=== PATIENT | male | born 1945 | race Caucasian/White ===

== ENCOUNTER 2022-01-25 14:07 | Emergency (ER) | payer OTHER ==
[~2022-01-25] VITALS: Ht 180.3 cm; Wt 85.3 kg
--- NOTE | 2022-01-25 14:17 | NUR ---
TO ER BED 7, BIBA RA99 From Home "Recent dc from hospital saturday now SOB/Kidney disease, AAOX3, breathing even and non labored, connected to monitor, awaiting md whelan
[2022-01-25 16:10] LABS: BASOPHILS % (AUTO) 0.4 % (0.0-2.0); EOSINOPHILS % (AUTO) 2.2 % (0.0-6.0); HEMATOCRIT 28 % (39-51); HEMOGLOBIN 9.4 g/dL (13.5-17.5); LYMPHOCYTES # (AUTO) 0.6 K/uL (0.8-4.8); LYMPHOCYTES % (AUTO) 6.6 % (20.0-44.0); MEAN CORPUSCULAR HGB CONC 33 g/dl (31.0-36.0); MEAN CORPUSCULAR VOLUME 95 fL (80-96); MONOCYTES # (AUTO) 0.6 K/uL (0.1-1.30); MONOCYTES % (AUTO) 7.3 % (2.0-12.0); NEUTROPHILS # (AUTO) 7.4 K/uL (1.8-8.9); NEUTROPHILS % (AUTO) 83.5 % (43.0-81.0); PLATELET COUNT (AUTO) 248 K/uL (150-450); RED BLOOD CELL COUNT(AUTO) 2.97 MIL/uL (4.5-6.0); WHITE BLOOD COUNT (AUTO) 8.9 K/uL (4.3-11.0)
[2022-01-25 16:44] LABS: CALCIUM, SERUM 8.1 mg/dL (8.5-10.1); CARBON DIOXIDE 21 mmol/L (21-32); CHLORIDE 108 mmol/L (98-107); CREATININE 3.2 mg/dL (0.6-1.3); GLUCOSE 118 mg/dL (74-106); POTASSIUM 5.9 mmol/L (3.5-5.1); SODIUM SERUM 138 mmol/L (136-145)
[2022-01-25] MEDS ORDERED: FURO40TA5 PO (16:46)
[2022-01-25] MEDS ORDERED: AMLO-212 PO (16:46)
[2022-01-25] MEDS ORDERED: ATOR40TA PO (16:51)
[2022-01-25] MEDS ORDERED: INSU100V7 SQ (16:51)
[2022-01-25] MEDS ORDERED: HYDR-4076 PO (16:51)
[2022-01-25] MEDS ORDERED: ASPI-1169 PO (16:51)
[2022-01-25] MEDS ORDERED: VIT1TABL44 PO (16:51)
[2022-01-25 16:56] LABS: ALANINE AMINOTRANSFERASE 26 U/L (12-78); ALBUMIN 2.2 g/dL (3.4-5.0); ALKALINE PHOSPHATASE 210 U/L (46-116); ASPARTATE AMINOTRANSFERASE 42 U/L (15-37); BILIRUBIN,DIRECT 0.1 mg/dL (0.0-0.2); BILIRUBIN,TOTAL 0.3 mg/dL (0.2-1.0)
[2022-01-25 16:57] LABS: UREA NITROGEN, BLOOD 88 mg/dL (7-18)
[2022-01-25] MEDS ORDERED: SODIUM POLYSTYRENE SULFONATE 15 G/60 ML BOTTLE PO ONE (17:00)
[2022-01-25] MEDS ORDERED: FUROSEMIDE 40 MG/4 ML VIAL IV ONE (17:00)
[2022-01-25] MEDS ORDERED: SODIUM BICARBONATE SYR 50 MEQ/50 ML DISP.SYRIN IV ONE (17:00)
--- NOTE | 2022-01-25 17:00 | NUR ---
Midline Nurse here to insert IV access
[2022-01-25] MEDS ORDERED: SODIUM POLYSTYRENE SULFONATE 15 G/60 ML BOTTLE ONE (17:20)
[2022-01-25] MEDS ORDERED: FUROSEMIDE 20 MG/2 ML VIAL ONE (17:20)
--- NOTE | 2022-01-25 17:26 | NUR ---
RADHA BETANCOURT SPEAKING WITH DR. FISH.
[2022-01-25 19:02] VITALS: BP 153/98
--- NOTE | 2022-01-25 19:03 | NUR ---
ATTEMPTED TO GIVE REPORT, NO NURSE ASSIGN YET, PT WILL GO TO ER
--- NOTE | 2022-01-25 19:03 | NUR ---
ACCEPTED AT [facility] DR. PARKER ACCEPTING . [phone] REPORT AFTER CHANGE OF SHIFT.
--- NOTE | 2022-01-25 19:07 | NUR ---
REPORT GIVEN TO PHIL JACKSON FOR ANAY
--- NOTE | 2022-01-25 19:23 | NUR ---
PICKED UP BY TRANSSPORT IN STABLE CONDITION
== END 2022-01-25 19:24 | disposition short-term general hospital (02) ==
LOC: ER 14:09
DX: I13.0 Hypertensive heart and chronic kidney disease with heart failure and stage 1 through stage 4 chronic kidney disease, or unspecified chronic kidney disease (principal); I50.9 Heart failure, unspecified; E11.22 Type 2 diabetes mellitus with diabetic chronic kidney disease; N18.9 Chronic kidney disease, unspecified; Z79.4 Long term (current) use of insulin; Z79.899 Other long term (current) drug therapy; I45.10 Unspecified right bundle-branch block; Z20.822 Contact with and (suspected) exposure to COVID-19; E87.5 Hyperkalemia
CPT/HCPCS: 99291; 96374; 71045; 96375; 87426; 36410; 93005; 85025; 80048; 80076; 36415; 83880; J1940; C9803

== ENCOUNTER 2022-02-08 03:55 | Emergency (ER) | payer OTHER ==
[~2022-02-08] VITALS: Ht 175.3 cm; Wt 85.3 kg
[~2022-02-08 03:55] MED LIST: AMLO-212 PO; ASPI-1169 PO; ATOR40TA PO; FURO40TA5 PO; HYDR-4076 PO; INSU100V7 SQ; VIT1TABL44 PO
--- NOTE | 2022-02-08 04:03 | NUR ---
[id number] FROM HOME C/O CONSTIPATION & URINARY RETENTION X5 HOURS. PT A/OX4. TOLERATING R/A WELL WITH NO RESP DISTRESS. SAFETY MEASURES IN PLACE.
[2022-02-08] MEDS ORDERED: LIDOCAINE 2% JEL UROJET 10 ML MM ONE ×2 (04:05→04:30)
--- NOTE | 2022-02-08 04:16 | NUR ---
16FR INDWELLING FC INSERTED WITH 1100ML OUTPUT. MADE AWARE.
--- NOTE | 2022-02-08 04:16 | NUR ---
URINE SENT TO LAB
--- NOTE | 2022-02-08 04:16 | NUR ---
CALLED LAB FOR CALL CENTER SUPPORT CONSULTANT
[2022-02-08] MEDS ORDERED: NA PHOS,M-B/NA PHOS,DI-BA 1 EA ENEMA RC ONE (04:17)
--- NOTE | 2022-02-08 04:26 | NUR ---
FLEET ENEMA ADMIN PER MD ORDER. PT TOLERATED WELL. PLACED IN L LATERAL.
[2022-02-08] MEDS ORDERED: MINERAL OIL 133 ML (PYXIS) 1 EA ENEMA RC ONE (04:30)
[2022-02-08 06:00] LABS: BILIRUBIN,URINE NEGATIVE (NEGATIVE); LEUKOCYTE ESTERASE ,URINE LARGE (NEGATIVE); NITRITE, URINE NEGATIVE (NEGATIVE); PROTEIN,URINE 3+ mg/dl (NEGATIVE); UGLUCOSE NEGATIVE (NEGATIVE); UROBILINOGEN,URINE 0.2 EU/dL (0.2)
[2022-02-08 06:17] LABS: BACTERIA,URINE Few /HPF (None Seen); RBC,URINE 0-2 /HPF (0-2); SQUAMOUS EPITHELIAL CELL,UR Rare /HPF (None Seen); WBC,URINE TOO NUMEROUS TO COUN /HPF (0-3)
[2022-02-08] MEDS ORDERED: CIPR500T5 PO (06:27)
--- NOTE | 2022-02-08 07:14 | NUR ---
CALLED [facility] TO INITIATE A TRANSPORT FOR PT TO GO BACK TO HIS RESIDENCE. WILL CALL BACK FOR MD TO
--- NOTE | 2022-02-08 07:16 | NUR ---
DR. TOM FROM [facility] ON THE PHONE WITH DR. GARCIA
--- NOTE | 2022-02-08 07:23 | NUR ---
arriaga catheter bag changed to leg bag. patient teaching provided and pt verbalizes understanding.
--- NOTE | 2022-02-08 07:29 | NUR ---
RADHAMES ([facility]) - [phone] CHELY () - [phone]
--- NOTE | 2022-02-08 07:50 | NUR ---
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
--- NOTE | 2022-02-08 08:33 | NUR ---
COVID SWAB DONE AND SENT TO LAB
[2022-02-08 08:40] LABS: BASOPHILS % (AUTO) 0.4 % (0.0-2.0); EOSINOPHILS % (AUTO) 0.8 % (0.0-6.0); HEMATOCRIT 25 % (39-51); HEMOGLOBIN 8.2 g/dL (13.5-17.5); LYMPHOCYTES # (AUTO) 0.5 K/uL (0.8-4.8); LYMPHOCYTES % (AUTO) 5.4 % (20.0-44.0); MEAN CORPUSCULAR HGB CONC 33 g/dl (31.0-36.0); MEAN CORPUSCULAR VOLUME 93 fL (80-96); MONOCYTES # (AUTO) 0.5 K/uL (0.1-1.30); MONOCYTES % (AUTO) 5.7 % (2.0-12.0); NEUTROPHILS # (AUTO) 7.7 K/uL (1.8-8.9); NEUTROPHILS % (AUTO) 87.7 % (43.0-81.0); PLATELET COUNT (AUTO) 227 K/uL (150-450); RED BLOOD CELL COUNT(AUTO) 2.66 MIL/uL (4.5-6.0); WHITE BLOOD COUNT (AUTO) 8.7 K/uL (4.3-11.0)
[2022-02-08 08:50] LABS: CALCIUM, SERUM 8.6 mg/dL (8.5-10.1); CARBON DIOXIDE 22 mmol/L (21-32); CHLORIDE 109 mmol/L (98-107); CREATININE 3.3 mg/dL (0.6-1.3); GLUCOSE 112 mg/dL (74-106); POTASSIUM 5.7 mmol/L (3.5-5.1); SODIUM SERUM 139 mmol/L (136-145)
--- NOTE | 2022-02-08 08:52 | NUR ---
Asim pineda in ED - 02/08/22 at 0852 by CHRISTINA COVID SWAB DONE AND SENT TO LAB
[2022-02-08 08:53] LABS: UREA NITROGEN, BLOOD 89 mg/dL (7-18)
--- NOTE | 2022-02-08 11:19 | NUR ---
RADHAMES ([facility]) CALLED AND I WAS TOLD THAT THE CAREGIVER FOR THE PT WILL BE AT PT'S HOME AT NOON.
--- NOTE | 2022-02-08 11:48 | NUR ---
[facility] WILL CALL BACK FOR TRANSPORT ETA.
--- NOTE | 2022-02-08 12:17 | NUR ---
[facility] CALLED. [facility] ETA 1300, [facility].
[2022-02-08 13:26] VITALS: BP 160/68
== END 2022-02-08 13:26 | disposition short-term general hospital (02) ==
LOC: ER 04:01
DX: R33.9 Retention of urine, unspecified (principal); K59.00 Constipation, unspecified; I11.0 Hypertensive heart disease with heart failure; I50.9 Heart failure, unspecified; F31.9 Bipolar disorder, unspecified; E11.9 Type 2 diabetes mellitus without complications; Z20.822 Contact with and (suspected) exposure to COVID-19; Z98.61 Coronary angioplasty status; Z79.899 Other long term (current) drug therapy; Z79.82 Long term (current) use of aspirin; Z79.4 Long term (current) use of insulin; N39.0 Urinary tract infection, site not specified
CPT/HCPCS: 99285; 87426; 51702; 85025; 80048; 87077; 87086; 81001; 36415; 84132; J3490; C9803

== ENCOUNTER 2022-02-16 09:23 | Emergency (ER) | payer OTHER ==
[~2022-02-16] VITALS: Ht 175.3 cm; Wt 81.6 kg
[~2022-02-16 09:23] MED LIST changes: +CIPR500T5 PO
--- NOTE | 2022-02-16 09:35 | NUR ---
received pt 76 yrs male came from home c/o remove F/C WAS INSTREED ON 02/07/22 CO DISCOMFORT WAS CONECTED TO LEG BAG DRAING YELLOW cloudy color
--- NOTE | 2022-02-16 09:35 | NUR ---
Asim pineda in EDM - 02/16/22 at 1021 by WHITNEY REceived pt 76 yrs male came from home c/o Removed F/C was inserted on 02/07/22 pt awake and alert received pt
--- NOTE | 2022-02-16 10:04 | NUR ---
F/C DISCONTINUED PER DR CERRATO VERBAL ORDER.
--- NOTE | 2022-02-16 10:21 | NUR ---
UA SENT TO LAB
--- NOTE | 2022-02-16 12:38 | NUR ---
CALLED RADHA PHAN MD WILL CALL US BACK.
--- NOTE | 2022-02-16 12:45 | NUR ---
DR. LACKEY SPEAKING WITH ALMA COTTO.
--- NOTE | 2022-02-16 13:05 | NUR ---
PT VODING INCONTENT IN DIPPERFELLING BEATTER
--- NOTE | 2022-02-16 14:05 | NUR ---
Patient discharged to home in stable condition. Written and verbal after care instructions given. Patient verbalizes understanding of instruction.
[2022-02-16 14:16] VITALS: BP 119/88
== END 2022-02-16 14:17 | disposition home or self-care (01) ==
LOC: ER 09:25
DX: Z46.6 Encounter for fitting and adjustment of urinary device (principal); I11.0 Hypertensive heart disease with heart failure; I50.9 Heart failure, unspecified; I48.91 Unspecified atrial fibrillation; E11.9 Type 2 diabetes mellitus without complications; F31.9 Bipolar disorder, unspecified; Z79.899 Other long term (current) drug therapy